=== PATIENT | female | born 1955 | race African-American/Black ===

== ENCOUNTER 2018-11-28 04:06 | Inpatient (IN) | payer BC, MEDICAID ==
[~2018-11-28] VITALS: Ht 157.5 cm; Wt 67.1 kg
[2018-11-28] MEDS ORDERED: SODIUM CHLORIDE 0.9% 1,000 ML IV ONE (05:01)
[2018-11-28] MEDS ORDERED: KETOROLAC 30MG/ML VIAL IV STA (05:01)
[2018-11-28] MEDS ORDERED: ACETAMINOPHEN 325MG TABLET PO STA (05:01)
[2018-11-28] MEDS ORDERED: ONDANSETRON HCL 4MG/2ML INJ IV STA (05:01)
[2018-11-28 05:21] LABS: BASOPHILS % 0.9 % (0.0-2.0); HEMATOCRIT. 42.1 % (36.0-48.0); HEMOGLOBIN. 14.2 g/dL (12.0-16.0); MEAN CORPUSCULAR HEMOGLOBIN 31.9 pg (28.0-32.0); MEAN CORPUSCULAR VOLUME 94.2 fL (81.0-99.0); MEAN PLATELET VOLUME 8.4 fl (7.4-10.4); MONOCYTES % 5.1 % (2.0-8.0); PLATELET 223 x1000/uL (130-400); RED BLOOD CELL COUNT 4.46 mill/uL (4.2-5.4); RED CELL DISTRIBUTION WIDTH 13.4 % (11.6-14.6)
[2018-11-28 05:27] LABS: CHLORIDE 104 mEq/L (98-107)
[2018-11-28] MEDS ORDERED: CEFTRIAXONE 1 G PREMIX 50 ML IV ONE (06:00)
[2018-11-28] MEDS ORDERED: AZITHROMYCIN 500 MG in DEXT 5% WATER 250 ML IV ONE (06:00)
[2018-11-28] MEDS ORDERED: GUAIFENESIN 200MG/10ML SUGAR FREE UDC PO PRN (08:30)
[2018-11-28] MEDS ORDERED: LEVOFLOXACIN 500MG PREMIX 100 ML IV SCH (08:30)
[2018-11-28] MEDS ORDERED: AZITHROMYCIN 500 MG in DEXT 5% WATER 250 ML IV SCH (08:30)
[2018-11-28] MEDS ORDERED: ACETAMINOPHEN 650MG SUPP PR PRN (08:30)
[2018-11-28] MEDS ORDERED: NA PHOS,M-B/NA PHOS,DI-BA ENEMA 118ML PR PRN (08:30)
[2018-11-28] MEDS ORDERED: DIPHENHYDRAMINE 50MG/ML VIAL IV PRN (08:30)
[2018-11-28] MEDS ORDERED: DOCUSATE SODIUM 100MG CAPSULE PO PRN (08:30)
[2018-11-28] MEDS ORDERED: CLONIDINE 0.1MG TABLET PO PRN (08:30)
[2018-11-28] MEDS ORDERED: ACETAMINOPHEN 650MG/20.3ML UDC GT PRN (08:30)
[2018-11-28] MEDS ORDERED: MAGNESIUM/ALUMINUM HYDROXIDE/SIMETHICONE 30ML UDC PO PRN (08:30)
[2018-11-28] MEDS ORDERED: IPRATROPIUM/ALBUTEROL 0.5-3(2.5)MG/3ML NEB INH PRN (08:30)
[2018-11-28] MEDS ORDERED: HYDROCODONE/ACETAMINOPHEN 5/325MG TABLET PO PRN (08:30)
[2018-11-28] MEDS ORDERED: ONDANSETRON HCL 4MG/2ML INJ IV PRN (08:30)
[2018-11-28 10:30] VITALS: BP 96/55
[2018-11-28] MEDS ORDERED: HYDR200T80 PO (10:30)
[2018-11-28] MEDS: LEVOFLOXACIN 750MG PREMIX 150 ML IV SCH (11:13)
[2018-11-28] MEDS: ENOXAPARIN 40MG/0.4ML SYR SUBCUT SCH (11:14)
[2018-11-28 12:00] VITALS: BP 96/65
[2018-11-28] MEDS: SODIUM CHLORIDE 0.9% INJ 3ML FLUSH IVF SCH (13:21)
[2018-11-28] MEDS: ACETAMINOPHEN 325MG TABLET PO PRN (15:05)
[2018-11-28] MEDS: IPRATROPIUM/ALBUTEROL 0.5-3(2.5)MG/3ML NEB INH SCH ×2 (15:51→21:17)
[2018-11-28 16:00] VITALS: BP 113/64
[2018-11-28] MEDS: HYDROXYCHLOROQUINE SULFATE 200MG TABLET PO SCH (16:10)
[2018-11-28 20:00] VITALS: BP 106/66
[2018-11-28] MEDS: OSELTAMIVIR 75MG CAPSULE PO SCH (20:17)
[2018-11-29] VITALS: BP 106/73
[2018-11-29] MEDS: IPRATROPIUM/ALBUTEROL 0.5-3(2.5)MG/3ML NEB INH SCH ×4 (02:28→20:19)
[2018-11-29 04:00] VITALS: BP 109/68
[2018-11-29] MEDS: AZITHROMYCIN 500 MG in DEXT 5% WATER 250 ML IV SCH (05:23)
[2018-11-29] MEDS: SODIUM CHLORIDE 0.9% INJ 3ML FLUSH IVF SCH ×3 (05:44→23:07)
[2018-11-29 07:13] LABS: BASOPHILS % 0.6 % (0.0-2.0); HEMATOCRIT. 39.8 % (36.0-48.0); HEMOGLOBIN. 13.4 g/dL (12.0-16.0); LYMPHOCYTES % 46.3 % (20.0-50.0); MEAN CORPUSCULAR HEMOGLOBIN 31.5 pg (28.0-32.0); MEAN CORPUSCULAR VOLUME 93.9 fL (81.0-99.0); MEAN PLATELET VOLUME 8.6 fl (7.4-10.4); MONOCYTES % 6.1 % (2.0-8.0); PLATELET 219 x1000/uL (130-400); RED BLOOD CELL COUNT 4.24 mill/uL (4.2-5.4); RED CELL DISTRIBUTION WIDTH 13.3 % (11.6-14.6)
[2018-11-29 08:00] VITALS: BP 93/57
[2018-11-29 08:46] LABS: CHLORIDE 105 mEq/L (98-107)
[2018-11-29] MEDS: OSELTAMIVIR 75MG CAPSULE PO SCH ×2 (08:48→20:32)
[2018-11-29] MEDS: HYDROXYCHLOROQUINE SULFATE 200MG TABLET PO SCH (08:48)
[2018-11-29] MEDS: ENOXAPARIN 40MG/0.4ML SYR SUBCUT SCH (08:48)
[2018-11-29 09:51] LABS: HDL CHOLESTEROL 35 mg/dL (40-59); LDL CHOLESTEROL 69 mg/dL (5-100)
[2018-11-29] MEDS: LEVOFLOXACIN 750MG PREMIX 150 ML IV SCH (10:28)
[2018-11-29 12:00] VITALS: BP 83/79
[2018-11-29] MEDS: ACETAMINOPHEN 325MG TABLET PO PRN ×2 (14:04→20:33)
[2018-11-29 16:00] VITALS: BP 103/69
[2018-11-29 20:00] VITALS: BP 108/70
[2018-11-29] MEDS: GUAIFENESIN 600MG ER TABLET PO SCH (20:32)
[2018-11-29] MEDS ORDERED: ZOLPIDEM TARTRATE 5MG TABLET PO NR (22:45)
[2018-11-30 05:30] VITALS: BP 100/66
[2018-11-30] MEDS: AZITHROMYCIN 500 MG in DEXT 5% WATER 250 ML IV SCH (05:51)
[2018-11-30] MEDS: ACETAMINOPHEN 325MG TABLET PO PRN ×3 (05:52→22:57)
[2018-11-30] MEDS: SODIUM CHLORIDE 0.9% INJ 3ML FLUSH IVF SCH ×3 (06:29→21:00)
[2018-11-30] MEDS: IPRATROPIUM/ALBUTEROL 0.5-3(2.5)MG/3ML NEB INH SCH ×3 (07:57→21:56)
[2018-11-30 08:00] VITALS: BP 94/58
[2018-11-30] MEDS: HYDROXYCHLOROQUINE SULFATE 200MG TABLET PO SCH (09:05)
[2018-11-30] MEDS: GUAIFENESIN 600MG ER TABLET PO SCH ×2 (09:05→21:00)
[2018-11-30] MEDS: OSELTAMIVIR 75MG CAPSULE PO SCH ×2 (09:05→21:00)
[2018-11-30] MEDS: ENOXAPARIN 40MG/0.4ML SYR SUBCUT SCH (09:06)
[2018-11-30 12:00] VITALS: BP 96/59
[2018-11-30] MEDS: LEVOFLOXACIN 750MG PREMIX 150 ML IV SCH (14:28)
[2018-11-30 16:00] VITALS: BP 102/58
[2018-11-30 16:42] LABS: BASOPHILS % 0.7 % (0.0-2.0); EOSINOPHILS % 0.1 % (0.0-5.0); HEMATOCRIT. 38.4 % (36.0-48.0); HEMOGLOBIN. 12.9 g/dL (12.0-16.0); LYMPHOCYTES % 39.4 % (20.0-50.0); MEAN CORPUSCULAR HEMOGLOBIN 31.6 pg (28.0-32.0); MEAN CORPUSCULAR VOLUME 93.5 fL (81.0-99.0); MEAN PLATELET VOLUME 7.9 fl (7.4-10.4); MONOCYTES % 10.2 % (2.0-8.0); NEUTROPHILS % 49.6 % (40.0-76.0); PLATELET 239 x1000/uL (130-400); RED CELL DISTRIBUTION WIDTH 13.5 % (11.6-14.6)
[2018-11-30 16:47] LABS: CHLORIDE 106 mEq/L (98-107)
[2018-11-30 20:00] VITALS: BP 107/65
[2018-11-30] MEDS ORDERED: ZOLPIDEM TARTRATE 5MG TABLET PO NR (23:15)
[2018-12-01] VITALS: BP 112/69
[2018-12-01] MEDS: IPRATROPIUM/ALBUTEROL 0.5-3(2.5)MG/3ML NEB INH SCH ×3 (01:17→13:53)
[2018-12-01 04:00] VITALS: BP 107/64
[2018-12-01] MEDS: SODIUM CHLORIDE 0.9% INJ 3ML FLUSH IVF SCH (05:16)
[2018-12-01] MEDS: AZITHROMYCIN 500 MG in DEXT 5% WATER 250 ML IV SCH (05:16)
[2018-12-01] MEDS ORDERED: TAM75 PO (08:25)
[2018-12-01] MEDS ORDERED: AZIT500T2 MT (08:25)
[2018-12-01 09:35] LABS: BASOPHILS % 0.6 % (0.0-2.0); EOSINOPHILS % 0.2 % (0.0-5.0); HEMATOCRIT. 39.2 % (36.0-48.0); HEMOGLOBIN. 13.2 g/dL (12.0-16.0); LYMPHOCYTES % 33.9 % (20.0-50.0); MEAN CORPUSCULAR HEMOGLOBIN 31.7 pg (28.0-32.0); MEAN CORPUSCULAR VOLUME 94.4 fL (81.0-99.0); MEAN PLATELET VOLUME 7.9 fl (7.4-10.4); MONOCYTES % 14.6 % (2.0-8.0); NEUTROPHILS % 50.7 % (40.0-76.0); PLATELET 245 x1000/uL (130-400); RED BLOOD CELL COUNT 4.15 mill/uL (4.2-5.4); RED CELL DISTRIBUTION WIDTH 13.5 % (11.6-14.6)
[2018-12-01] MEDS: OSELTAMIVIR 75MG CAPSULE PO SCH (09:37)
[2018-12-01] MEDS: GUAIFENESIN 600MG ER TABLET PO SCH (09:37)
[2018-12-01] MEDS: ENOXAPARIN 40MG/0.4ML SYR SUBCUT SCH (09:38)
[2018-12-01] MEDS: HYDROXYCHLOROQUINE SULFATE 200MG TABLET PO SCH (09:38)
[2018-12-01 09:42] LABS: CHLORIDE 106 mEq/L (98-107)
[2018-12-01 11:10] VITALS: BP 127/66
[2018-12-01] MEDS: ACETAMINOPHEN 325MG TABLET PO PRN (12:44)
== END 2018-12-01 15:02 | disposition home or self-care (01) | DRG 720 ==
LOC: ER 04:06 → 6EST 05:55 → ENRESERV 08:47
PROVIDERS: ADMIT Family Medicine; ATTEND Family Medicine
DX: A41.9 Sepsis, unspecified organism (principal); J96.00 Acute respiratory failure, unspecified whether with hypoxia or hypercapnia; J10.00 Influenza due to other identified influenza virus with unspecified type of pneumonia; E86.0 Dehydration; Z96.649 Presence of unspecified artificial hip joint; Z79.899 Other long term (current) drug therapy
CPT/HCPCS: 36415; 71045; 80061; 83605; 84145; 87804; 94640; 96374; 96375; 97161; 99285; C1893; J0456; J0696; J1650; J1885; J1956; J2405; J7030; J7060; J7620

== ENCOUNTER 2019-05-25 02:04 | Emergency (ER) | payer MEDICAID ==
[~2019-05-25] VITALS: Ht 157.5 cm; Wt 73.1 kg
[~2019-05-25 02:04] MED LIST: AZIT500T2 MT; HYDR200T80 PO; TAM75 PO
[2019-05-25] MEDS ORDERED: ACETAMINOPHEN 325MG TABLET PO ONE (02:30)
[2019-05-25 04:10] VITALS: BP 125/70
== END 2019-05-25 04:17 | disposition home or self-care (01) ==
LOC: ER 02:04
DX: S92.351A Displaced fracture of fifth metatarsal bone, right foot, initial encounter for closed fracture (principal); Z79.899 Other long term (current) drug therapy; X58.XXXA Exposure to other specified factors, initial encounter; Y93.01 Activity, walking, marching and hiking; Y92.488 Other paved roadways as the place of occurrence of the external cause; Y99.8 Other external cause status
CPT/HCPCS: 29515; 73630; 99283

== ENCOUNTER 2025-04-12 18:09 | Emergency (ER) | payer MEDICARE, OTHER ==
[~2025-04-12] VITALS: Ht 170.2 cm; Wt 71.0 kg
[2025-04-12 18:10] VITALS: PULSE 89; RESP 16; O2SAT 98
[2025-04-12 18:15] VITALS: BP 139/72; TEMP 37; O2SAT 97
== END 2025-04-12 20:28 | disposition left against medical advice (07) ==
LOC: ER 18:09
DX: R50.9 Fever, unspecified (principal); J11.1 Influenza due to unidentified influenza virus with other respiratory manifestations; Z53.21 Procedure and treatment not carried out due to patient leaving prior to being seen by health care provider